=== PATIENT | male | born 1975 | race African-American/Black ===

== ENCOUNTER 2018-05-28 09:04 | Emergency (ER) | payer OTHER ==
--- NOTE | 2018-05-28 10:08 | ER Document Report ---
ED Medical Screen (RME) - General Chief Complaint: Abdominal Pain Stated Complaint: LOWER ABDOMINAL PAIN Time Seen by Provider: 05/28/18 10:05 Primary Care Provider: KIARA ACOSTA [Primary Care Provider] - Follow up as needed Notes: Patient is a 43-year-old male that presents to the emergency department for chief complaint of suprapubic abdominal pain. Patient states pains been going on for 2 days, comes and goes, no urinary symptoms, some nausea denies vomiting.. ROS: Other than noted above, the 12 point review of systems was reviewed with the patient and were negative, all pertinent findings are included in the HPI. PHYSICAL EXAMINATION: Vital signs reviewed. GENERAL: Well-appearing, well-nourished and in no acute distress. HEAD: Atraumatic, normocephalic. EYES: Pupils equal round extraocular movements intact, conjunctiva are normal. ENT: Nares patent NECK: Normal range of motion CV: Heart regular rate and rhythm LUNGS: No respiratory distress Musculoskeletal: Normal range of motion Abdomen: Nontender abdomen at this time, I could not appreciate any hernias on my exam. NEUROLOGICAL: Normal speech PSYCH: Normal mood, normal affect. MDM: Patient seen and examined for rapid initial assessment. Vital signs reviewed. A comprehensive ED assessment and evaluation of the patient, analysis of test results and completion of the medical decision making process will be conducted by additional ED providers. *Note is created using voice recognition software and may contain spelling, syntax or grammatical errors. TRAVEL OUTSIDE OF THE [place] IN LAST 30 DAYS: No Physical Exam - Vital signs Vitals: Temp Pulse Resp BP Pulse Ox 98.1 F 67 16 145/70 H 100 05/28/18 09:10 05/28/18 09:10 05/28/18 09:10 05/28/18 09:10 05/28/18 09:10 Course - Vital Signs Vital signs: Temp Pulse Resp BP Pulse Ox 98.1 F 67 16 145/70 H 100 05/28/18 09:10 05/28/18 09:10 05/28/18 09:10 05/28/18 09:10 05/28/18 09:10 Doctor's Discharge - Discharge Referrals: KIARA ACOSTA [Primary Care Provider] - Follow up as needed
[2018-05-28 10:36] LABS: ABSOLUTE EOSINOPHILS # (AUTO) 0.1 10^3/uL (0.0-0.6); ABSOLUTE LYMPHOCYTES (AUTO) 1.3 10^3/uL (0.5-4.7); ABSOLUTE MONOCYTES (AUTO) 0.3 10^3/uL (0.1-1.4); ABSOLUTE NEUT (AUTO) 3.1 10^3/uL (1.7-8.2); BASOPHILS % (AUTO) 0.6 % (0-2); EOSINOPHILS % (AUTO) 1.9 % (0-6); HEMATOCRIT 44.1 % (37.9-51.0); HEMOGLOBIN 15.1 g/dL (13.5-17.0); LYMPHOCYTES % (AUTO) 26.7 % (13-45); MEAN CORPUSCULAR HEMOGLOBIN 31.8 pg (27.0-33.4); MEAN CORPUSCULAR HGB CONC 34.3 g/dL (32.0-36.0); MEAN CORPUSCULAR VOLUME 93 fl (80-97); MONOCYTES % (AUTO) 6.4 % (3-13); PLATELET COUNT 203 10^3/uL (150-450); RED BLOOD COUNT 4.75 10^6/uL (4.35-5.55); RED CELL DISTRIBUTION WIDTH 13.2 % (11.5-14.0); SEGMENTED NEUTROPHILS % (AUTO) 64.4 % (42-78); TOTAL CELLS COUNTED % (AUTO) 100 %; WHITE BLOOD COUNT 4.8 10^3/uL (4.0-10.5)
--- NOTE | 2018-05-28 10:41 | ER Document Report ---
ED General - General Chief Complaint: Abdominal Pain Stated Complaint: LOWER ABDOMINAL PAIN Time Seen by Provider: 05/28/18 10:05 Primary Care Provider: [facility] [Provider Group] - Follow up in 1 week [facility] [Provider Group] - Follow up in 1 week Notes: Patient is a 43-year-old male is a healthy that presents to the emergency department for chief complaint of suprapubic abdominal pain. Patient reports his been going on for the past 2 days, on and off, describes as a sharp pain. Does not related to food. He said associated nausea, but no vomiting, diarrhea, fevers, chills or sick contacts. Currently rates the pain as a 3 out of 10 describes as moderate. He denies of any urinary symptoms such as dysuria, hematuria, testicular pain, or swelling. Past Medical History: Denies chronic medical conditions Past Surgical History: Denies pertinent surgical history Social History: Admits to smoking cigarettes, denies regular alcohol use, admits to using bath salts on occasion. Family History: Reviewed and noncontributory for presenting illness Allergies: Reviewed, see documented allergy list. REVIEW OF SYSTEMS: Other than noted above, the 12 point review of systems was reviewed with the patient and were negative, all pertinent findings are included in the HPI. PHYSICAL EXAMINATION: Vital signs reviewed, nursing noted reviewed. GENERAL: Well-appearing, well-nourished and in no acute distress. HEAD: Atraumatic, normocephalic. EYES: Eyes appear normal, extraocular movements intact, sclera anicteric, conjunctiva are normal. ENT: nares patent,. Moist mucous membranes. NECK: Normal range of motion, supple without lymphadenopathy LUNGS: Breath sounds clear to auscultation bilaterally and equal. No wheezes rales or rhonchi. HEART: Regular rate and rhythm without murmurs ABDOMEN: Soft, nontender, normoactive bowel sounds. No rebound, guarding, or rigidity. No masses appreciated. No palpable hernias, no umbilical hernia. EXTREMITIES: Nontender, good range of motion, no pitting or edema. NEUROLOGICAL: No focal neurological deficits. Moves all extremities spontaneously Motor and sensory grossly intact on exam. PSYCH: Normal mood, normal affect. SKIN: Warm, Dry, normal turgor, no rashes or lesions noted on exposed skin TRAVEL OUTSIDE OF THE [place] IN LAST 30 DAYS: No - Related Data Allergies/Adverse Reactions: No Known Allergies Allergy (Verified 05/28/18 11:23) Past Medical History - Social History Smoking Status: Current Every Day Smoker Chew tobacco use (# tins/day): No Drug Abuse: Bath salts Family History: Reviewed & Not Pertinent Patient has suicidal ideation: No Patient has homicidal ideation: No Renal/ Medical History: Denies: Hx Peritoneal Dialysis Physical Exam - Vital signs Vitals: Temp Pulse Resp BP Pulse Ox 98.1 F 67 16 145/70 H 100 05/28/18 09:10 05/28/18 09:10 05/28/18 09:10 05/28/18 09:10 05/28/18 09:10 Course - Re-evaluation Re-evalutation: Patient seen and examined vital signs reviewed. Laboratory data ordered as appropriate for the patient's presenting symptoms and complaint, with consideration of any critical or life threatening conditions that may be associated with their obtained history and exam as noted above. Results were reviewed when available and demonstrated small amount of hematuria in the UA, otherwise unremarkable blood work The patient was re-evaluated and was stable, appears comfortable Evaluation was most consistent with hematuria, given that the patient had suprapubic pain, this could be related to prostatitis versus a cystitis, will send urine for culture, and treat the patient for possible prostatitis, with doxycycline, 100 mg for 10 days, have him follow-up and repeat UA, patient was agreeable to this plan of care. Results were discussed with the patient at this point, after careful consideration I feel that that patient can be discharged from the emergency department, the patient was educated treatments and reasons to return to the emergency department based on their presumed diagnosis as noted above, they were advised to followup with a primary care physician in 2-3 days. Patient was agreeable to plan of care. *Note is created using voice recognition software and may contain spelling, syntax or grammatical errors. Laboratory 05/28/18 05/28/18 05/28/18 10:22 10:22 10:22 WBC 4.8 RBC 4.75 Hgb 15.1 Hct 44.1 MCV 93 MCH 31.8 MCHC 34.3 RDW 13.2 Plt Count 203 Seg Neutrophils % 64.4 Lymphocytes % 26.7 Monocytes % 6.4 Eosinophils % 1.9 Basophils % 0.6 Absolute Neutrophils 3.1 Absolute Lymphocytes 1.3 Absolute Monocytes 0.3 Absolute Eosinophils 0.1 Absolute Basophils 0.0 Sodium 141.8 Potassium 4.4 Chloride 108 H Carbon Dioxide 29 Anion Gap 5 BUN 15 Creatinine 0.95 Est GFR ( Amer) > 60 Est GFR (Non-Af Amer) > 60 Glucose 98 Calcium 9.2 Total Bilirubin 0.4 Direct Bilirubin 0.1 Neonat Total Bilirubin Not Reportable Neonat Direct Bilirubin Not Reportable Neonat Indirect Bili Not Reportable AST 27 ALT 46 Alkaline Phosphatase 49 Total Protein 7.2 Albumin 4.3 Lipase 26.1 Urine Color YELLOW Urine Appearance CLEAR Urine pH 6.0 Ur Specific [place] 1.014 Urine Protein NEGATIVE Urine Glucose (UA) NEGATIVE Urine Ketones NEGATIVE Urine Blood SMALL H Urine Nitrite NEGATIVE Urine Bilirubin NEGATIVE Urine Urobilinogen NEGATIVE Ur Leukocyte Esterase NEGATIVE Urine WBC (Auto) 7 Urine RBC (Auto) 1 Squamous Epi Cells Auto 1 Urine Mucus (Auto) OCC Urine Ascorbic Acid NEGATIVE - Vital Signs Vital signs: Temp Pulse Resp BP Pulse Ox 98.0 F 64 16 114/75 100 05/28/18 11:22 05/28/18 11:22 05/28/18 11:22 05/28/18 11:22 05/28/18 11:22 - Laboratory Result Diagrams: 05/28/18 10:22 05/28/18 10:22 Laboratory results interpreted by me: 05/28/18 05/28/18 10:22 10:22 Chloride 108 H Urine Blood SMALL H Discharge - Discharge Clinical Impression: Abdominal pain Qualifiers: Abdominal location: unspecified location Qualified Code(s): R10.9 - Unspecified abdominal pain Hematuria Qualifiers: Hematuria type: unspecified type Qualified Code(s): R31.9 - Hematuria, unspecified Condition: Stable Disposition: HOME, SELF-CARE Instructions: Abdominal Pain ([facility]) Additional Instructions: You may have an infection of the bladder or the prostate, we will treat this with an antibiotic called doxycycline, for 10 days, you take it twice daily for that period of time. In the meantime I want you to follow-up with a primary care physician, to I have been listed with your paperwork, to have repeat urine testing in 2 weeks. He did have some blood in your urine, this may be indicative of irritation of the prostate, versus infection, but we do like to see if the urine is clearing up. Prescriptions: Doxycycline Hyclate 100 mg PO BID #20 capsule Referrals: [facility] [Provider Group] - Follow up in 1 week [facility] [Provider Group] - Follow up in 1 week
[2018-05-28 10:44] LABS: APPEARANCE,URINE CLEAR; BILIRUBIN,URINE NEGATIVE (NEGATIVE); COLOR,URINE YELLOW; GLUCOSE, URINE NEGATIVE (NEGATIVE); KETONES,URINE NEGATIVE (NEGATIVE); LEUKOCYTE ESTERASE,URINE NEGATIVE (NEGATIVE); NITRITE,URINE NEGATIVE (NEGATIVE); PROTEIN,URINE NEGATIVE (NEGATIVE); URINE SPECIFIC GRAVITY 1.014; UROBILINOGEN,URINE NEGATIVE mg/dL (<2.0)
[2018-05-28 10:53] LABS: ALANINE AMINOTRANSFERASE 46 U/L (21-72); ALBUMIN 4.3 g/dL (3.5-5.0); ALKALINE PHOSPHATASE 49 U/L (38-126); ANION GAP 5 (5-19); ASPARTATE AMINO TRANSFERASE 27 U/L (17-59); BILIRUBIN,DIRECT 0.1 mg/dL (0.0-0.4); BILIRUBIN,TOTAL 0.4 mg/dL (0.2-1.3); BLOOD UREA NITROGEN 15 mg/dL (7-20); CALCIUM 9.2 mg/dL (8.4-10.2); CARBON DIOXIDE 29 mmol/L (22-30); CHLORIDE 108 mmol/L (98-107); GLUCOSE 98 mg/dL (75-110); LIPASE 26.1 U/L (23-300); POTASSIUM 4.4 mmol/L (3.6-5.0); SODIUM 141.8 mmol/L (137-145); TOTAL PROTEIN 7.2 g/dL (6.3-8.2)
[2018-05-28 11:23] VITALS: BP 114/75
== END 2018-05-28 11:25 | disposition home or self-care (01) ==
LOC: ER 09:04
DX: R10.30 Lower abdominal pain, unspecified (principal); R31.9 Hematuria, unspecified; F17.210 Nicotine dependence, cigarettes, uncomplicated
CPT/HCPCS: 36415; 80053; 81001; 83690; 85025; 87086; 99284